=== PATIENT | female | born 2005 | race Two or more races ===

== ENCOUNTER 2024-05-24 22:17 | Emergency (ER) | payer MEDICAID, OTHER ==
[~2024-05-24] VITALS: Ht 172.7 cm; Wt 63.6 kg
[2024-05-24 23:50] VITALS: PULSE 67; RESP 10; O2SAT 98
[2024-05-25] MEDS ORDERED: CYCL-837 PO ×2 (01:39→17:23)
[2024-05-25] MEDS ORDERED: HYDR-4902 PO ×2 (01:39→17:23)
[2024-05-25 01:50] VITALS: BP 125/78; PULSE 86; RESP 12; O2SAT 98
[2024-05-25] MEDS: KETOROLAC TROMETH 30 MG/ML 1ML VIAL IM ONE (01:50)
== END 2024-05-25 01:50 | disposition home or self-care (01) ==
LOC: ER 22:17 → EDBD 22:17 → ER 05-25 01:50
DX: S16.1XXA Strain of muscle, fascia and tendon at neck level, initial encounter (principal); S13.4XXA Sprain of ligaments of cervical spine, initial encounter; S60.222A Contusion of left hand, initial encounter; V89.2XXA Person injured in unspecified motor-vehicle accident, traffic, initial encounter; Y93.89 Activity, other specified; Y92.89 Other specified places as the place of occurrence of the external cause; Y99.8 Other external cause status
CPT/HCPCS: 70450; 72125; 73130; 96372; 99285; J1885